=== PATIENT | female | born 2000 | race Caucasian/White ===

== ENCOUNTER → 2023-03-10 | Outpatient (CLI) | payer SELFPAY ==
[2023-03-10 10:03] LABS: BASOPHILS ABSOLUTE AUTO 0.04 K/mm3 (0.00-0.23); BASOPHILS PERCENT AUTO 1 % (0-2); EOSINOPHILS ABSOLUTE AUTO 0.09 K/mm3 (0.00-0.68); EOSINOPHILS PERCENT AUTO 2 % (0-6); Hematocrit 35.8 % (33.0-51.0); Hemoglobin 12.2 g/dL (11.5-16.0); IMMATURE GRAN ABSOLUTE AUTO 0.01 K/mm3 (0.00-0.10); IMMATURE GRAN PERCENT AUTO 0 % (0-1); LYMPHOCYTES ABSOLUTE AUTO 2.26 K/mm3 (0.84-5.20); LYMPHOCYTES PERCENT AUTO 39 % (21-46); MONOCYTES ABSOLUTE AUTO 0.54 K/mm3 (0.16-1.47); MONOCYTES PERCENT AUTO 9 % (4-13); Mean Corpuscular HGB 29.3 pg (26.0-34.0); Mean Corpuscular HGB Conc 34.1 g/dL (31.5-36.5); Mean Corpuscular Volume 86 fL (80-100); Mean Platelet Volume 10.4 fL (9.1-12.4); NEUTROPHILS ABSOLUTE AUTO 2.87 K/mm3 (1.96-9.15); NEUTROPHILS PERCENT AUTO 49 % (41-73); Platelet Count 372 K/mm3 (150-400); RDW Coefficient Variation 12.1 % (11.7-14.2); RDW Standard Deviation 37.8 fL (35.1-46.3); Red Blood Cell Count 4.17 M/mm3 (3.80-5.20); White Blood Cell Count 5.81 K/mm3 (4.00-11.30)
[2023-03-10 10:21] LABS: Albumin, Blood 3.6 g/dL (3.4-5.0); Albumin/Globulin Ratio 0.9 (0.8-1.8); Bilirubin, Total 0.5 mg/dL (0.1-1.0); Bun/Creatinine Ratio 10.8 (12.0-20.0); Calcium, Blood 9.4 mg/dL (8.5-10.1); Creatinine, Blood 0.74 mg/dL (0.40-1.00); Magnesium, Blood 1.8 mg/dL (1.6-2.4); Potassium, Blood 3.8 mmol/L (3.5-5.5); Thyroid Stimulating Hormone 3.07 uIU/mL (0.360-4.800); Total Protein, Blood 7.6 g/dL (6.4-8.2)
== END | disposition home or self-care (01) ==
LOC: LAB SHORT 09:58
PROVIDERS: Physician Assistant
DX: R53.83 Other fatigue (principal)
CPT/HCPCS: 80053; 83735; 84443; 85025

== ENCOUNTER 2023-10-21 22:54 | Emergency (ER) | payer BC ==
[~2023-10-21] VITALS: Ht 152.4 cm; Wt 60.8 kg
[2023-10-21 23:11] VITALS: BP 146/85
[2023-10-21 23:34] LABS: Source, Urine Clean Catch
[2023-10-21 23:43] LABS: Appearance, Urine Clear (Clear); Bilirubin, Urine Neg (Neg); Blood, Urine Neg (Neg); Color, Urine Yellow (P-Yellow); Glucose Qualitative, Urine Neg (Neg); Ketones, Urine Neg (Neg); Leukocyte Esterase, Urine Neg (Neg); Nitrite, Urine Neg (Neg); Protein, Urine 1+ (Neg); Urobilinogen, Urine NORM (Normal)
[2023-10-22 01:58] LABS: Candida species (DNA Probe) Negative (NEGATIVE); G. vaginalis (DNA Probe) Positive (NEGATIVE); T. vaginalis (DNA Probe) Negative (NEGATIVE)
[2023-10-22] MEDS ORDERED: METR500 PO (02:08)
[2023-10-25 03:37] LABS: CHLAMYDIA TRACHOMATIS, NAA Negative (Negative)
== END 2023-10-22 02:16 | disposition home or self-care (01) ==
LOC: ER 22:54
PROVIDERS: Student in an Organized Health Care Education/Training Program
DX: N76.0 Acute vaginitis (principal); B96.89 Other specified bacterial agents as the cause of diseases classified elsewhere
CPT/HCPCS: 81025; 87480; 87491; 87510; 87591; 87660; 99283; A9270

== ENCOUNTER 2023-11-16 22:53 | Emergency (ER) | payer BC ==
[~2023-11-16] VITALS: Ht 162.6 cm; Wt 56.7 kg
[~2023-11-16 22:53] MED LIST: METR500 PO
[2023-11-17 01:10] VITALS: BP 136/70
== END 2023-11-17 01:11 | disposition home or self-care (01) ==
LOC: ER 22:53
DX: K11.5 Sialolithiasis (principal)
CPT/HCPCS: 99283

== ENCOUNTER 2023-11-27 11:31 | Emergency (ER) | payer OTHER, BC ==
[~2023-11-27] VITALS: Ht 152.4 cm; Wt 59.9 kg
[2023-11-27 11:38] VITALS: BP 117/74
[2023-11-27] MEDS ORDERED: AMOCLA875 PO (13:12)
== END 2023-11-27 13:24 | disposition home or self-care (01) ==
LOC: ER 11:31
DX: S61.452A Open bite of left hand, initial encounter (principal); W54.0XXA Bitten by dog, initial encounter; Y93.89 Activity, other specified
CPT/HCPCS: 73110; 99283-25